=== PATIENT | male | born 1990 | race Caucasian/White ===

== ENCOUNTER 2017-11-11 12:05 | Emergency (ER) | payer OTHER ==
[2017-11-11] MEDS: IBUPROFEN 600 MG TAB PO (12:37)
== END 2017-11-11 14:09 | disposition home or self-care (01) ==
LOC: FTE 12:05
DX: M25.512 Pain in left shoulder (principal); F17.210 Nicotine dependence, cigarettes, uncomplicated
CPT/HCPCS: 73030; 99283-25